=== PATIENT | female | born 1985 | race Caucasian/White ===

== ENCOUNTER 2019-01-12 04:39 | Inpatient (IN) ==
--- NOTE | 2019-01-11 15:24 | HP ---
Chief Complaint - Chief Complaint Date of Service: 01/11/19 Time of Service: 15:14 Chief Complaint: RLTCS History of Present Illness: 33 yo presents to L&D for repeat section on 01/12/19 at 39 weeks. This complicated by advanced maternal age, CF carrier, GDM - diet controlled, h/o preeclampsia, migraines, prior c/s, and recurrent SAB. 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 [facility]. NRHTs, Failure to descend remote from delivery History of repair of ACL Onset Date: 1999 R knee Status post hysteroscopic polypectomy Onset Date: 12/19/16 and septoplasty Family History: Family History (Updated 06/29/18 @ 13:26 by Vera Ortega RN) Mother Thyroid cancer Primary cancer of shoulder Breast cancer Anemia Leukopenia Migraines Cancer of back Father Hepatitis Sister Anemia Crohns disease Grandmother Heart disease Maternal Hypertension Rheumatoid arthritis Social History: Preferred Language Cameroonian Smoking Status Never smoker (Last Reviewed 01/06/19 @ 09:21 by Melonie Hoskins RN) No Social History Section defined Review Of Systems (GEN) - Review of Systems Generalized/Overall Review: Present: No Symptoms Reported EENTM: Present: No Symptoms Reported Respiratory: Present: No Symptoms Reported Cardiac: Present: No Symptoms Reported Abdominal: Present: No Symptoms Reported Genitourinary: Present: No Symptoms Reported Musculoskeletal: Present: No Symptoms Reported Neurological: Present: No Symptoms Reported Skin: Present: No Symptoms Reported Endocrine: Present: No Symptoms Reported Allergies/Adverse Reactions: Allergies Allergy/AdvReac Type Severity Reaction Status Date / Time sulfamethoxazole Allergy Swelling Verified 01/06/19 09:21 [From Bactrim] (Other) sumatriptan [From Imitrex] Allergy Hives Verified 01/06/19 09:21 trimethoprim [From Bactrim] Allergy Swelling Verified 01/06/19 09:21 (Other) Iodinated Contrast- Oral and AdvReac Unknown Verified 01/06/19 09:21 IV Dye Home Medications: HOME MEDICATIONS acetaminophen 300 mg-codeine 30 mg tablet 1 tab PO TID PRN tab 06/29/18 [Last Taken Unknown] acetaminophen 325 mg capsule 325 mg PO PRN PRN 06/29/18 [Last Taken Unknown] vitamin,calcium,opcbyodb-llye-ysvhv acid tablet 1 tab PO DAILY 06/29/18 [Last Taken Unknown] Bacillus coagulans 10 billion cell capsule,delayed release 1 cell PO DAILY cap 08/17/18 [Last Taken Unknown] aspirin 81 mg tablet,delayed release 81 mg PO DAILY 08/17/18 [Last Taken Unknown] pyridoxine (vitamin B6) 25 mg tablet 25 mg PO DAILY 09/14/18 [Last Taken Unknown] calcium carbonate-vitamin D3 600 mg-125 unit tablet 1 tab PO DAILY tab 10/14/18 [Last Taken Unknown] blood sugar diagnostic strips See Dose Instructions .ROUTE .MEDSUPPLY #100 ea 10/27/18 [Last Taken Unknown] blood-glucose meter kit See Dose Instructions .ROUTE .MEDSUPPLY #1 ea 10/27/18 [Last Taken Unknown] ketone blood test strips See Dose Instructions .ROUTE .MEDSUPPLY #50 ea 10/27/18 [Last Taken Unknown] lancets 28 gauge See Dose Instructions .ROUTE .MEDSUPPLY #100 ea 10/27/18 [Last Taken Unknown] docusate sodium 50 mg capsule 50 mg PO BID 12/07/18 [Last Taken Unknown] Exam - Exam Constitutional: Present: Alert, Oriented x3, Cooperative, No distress ENT Exam: Present: hearing grossly normal Breasts: Present: Exam deferred Respiratory: Present: lungs clear, no respiratory distress Cardiovascular/Chest: Present: regular rate, rhythm, no edema Abdomen: Present: soft, no rebound tenderness, other - gravid /Rectal: Present: Exam deferred Extremity: Present: no pedal edema, no calf tenderness Skin Exam: Present: normal color, warm/dry, no cyanosis Neurologic: Present: alert, normal mood/affect, oriented x 3 Appearance: Present: appropriate appearance, appropriate insight Eye contact: Present: cooperative, good eye contact, normal speech Thoughts: Present: normal thought pattern Assessment/Plan - Assessment/Plan (1) Previous section Assessment: Admit for repeat section on 01/12/19. Problem: Acute (2) Gestational diabetes Problem: Acute Qualifiers: Gestational diabetes mellitus control: diet-controlled Trimester: third trimester Qualified Code(s): O24.410 - Gestational diabetes mellitus in , diet controlled (3) Advanced maternal age affecting , antepartum Problem: Acute (4) History of pre-eclampsia Problem: Chronic
[2019-01-12] MEDS ORDERED: RINGER'S SOLUTION,LACTATED 1,000 ML IV PRN ×2 (04:40)
[2019-01-12] MEDS ORDERED: ceFAZolin SODIUM/DEXTROSE,ISO 2 GM/50 ML BAG IV ONE (04:40)
[2019-01-12] MEDS ORDERED: OXYTOCIN 20 UNITS in RINGER'S SOLUTION,LACTATED 1,000 ML IV ONE (04:40)
[2019-01-12 05:32] LABS: Cocaine Ur Negative (NEGATIVE); Urine Barbiturate Negative (NEGATIVE); Urine Benzodiazepines Negative (NEGATIVE); Urine Opiates Negative (NEGATIVE); Urine PCP Negative (NEGATIVE); Urine THC Negative (NEGATIVE)
--- NOTE | 2019-01-12 09:25 | OR ---
Operative Report - Dictated Report Narrative: Indication: 33 year old 031 at 39 weeks presents for repeat section status: Planned Pre Operative Diagnosis: 39 week intrauterine , prior section, advanced maternal age, gestational diabetes-diet controlled, septate uterus Post Operative Diagnosis: Same. Procedure: Repeat low transverse section. Abdominal scar revision - 16cm Surgeon: Lynn Roca DO V Belt Curer: OR Staff Anesthesia: Spinal, TAP block Estimated Blood Loss: 400 mL Urine Output: 150 mL clear urine Fluids Replacement: 1300 mL Drains: Smith to gravity Surgical Complications: None Specimens: Placenta to pathology Findings: Female born at 0810 on 01/12/2021 with Apgars 9 and 9, weighing 3357 g in cephalic presentation. Severe rectus diathesis, Paper thin anterior lower uterine segment. Thick horizontal septum incorporating half of the uterine cavity, normal-appearing tubes and ovaries. Technique: The patient was taken to the operating room and placed in dorsal supine position with a left lateral tilt. After adequate spinal anesthesia, smith catheter inserted, SCDs placed, and 2 g of Ancef given preoperatively, the previous scar was excised in an elliptical fashion and the abdominal cavity was entered using sharp and blunt dissection. Two rolled laps were placed in the pericolic gutters on either side of the uterus. The entire lower uterine segment was noted to be paper thin. A transverse incision was made in the lower uterine segment and extended laterally and upwardly with digital traction. Clear fluid was noted upon amniotomy. The was delivered easily. The cord was clamped and cut and infant was handed off to awaiting washing and screening plant supervisor. The placenta was allowed to deliver spontaneously. The uterus was cleared of clot and debris. A thick (approximately 2 cm) vaginal septum was noted exte nding from the right side to mid uterus. Prior to closing the uterine incision, communication with the cervix was confirmed with the nurse placing a sterile finger into the cervix and reaching through the hysterotomy into the cervix to palpate her finger. Uterine incision was closed with 0 Vicryl using a running stitch. A second imbricating layer was placed. Excellent hemostasis was noted. By using a generous portion of uterus on either side of the incision I was able to bulk up the thickness of the uterine wall around the hysterotomy. The rolled laps were removed from the abdominal cavitiy. The peritoneum was closed with a running 3-0 Monocryl. The same suture was used to approximate the rectus and pyramidalis muscles. The fascia was closed with a running 0 Vicryl. The subcutaneous layer was closed with a running 3-0 Monocryl. The same suture was used to approximate the subdermal layer. The skin was closed with a running 4-0 Monocryl and Dermabond. Sponge, lap, needle, and instrument count were correct x 2. Disposition: To post anesthesia care unit in good condition
[2019-01-12] MEDS ORDERED: ONDANSETRON HCL/PF 2 MG/ML VIAL IV PRN (09:27)
[2019-01-12] MEDS ORDERED: oxyCODONE HCL/ACETAMINOPHEN 1 TAB TABLET PO PRN (09:27)
[2019-01-12] MEDS ORDERED: BISACODYL 10 MG SUPP.RECT RC PRN (09:27)
[2019-01-12] MEDS ORDERED: SIMETHICONE 80 MG TAB.CHEW PO PRN (09:27)
[2019-01-12] MEDS: oxyCODONE HCL/ACETAMINOPHEN 1 TAB TABLET PO PRN ×4 (10:07→20:22)
[2019-01-12] MEDS: IBUPROFEN 800 MG TABLET PO PRN ×2 (10:07→17:06)
--- NOTE | 2019-01-12 10:34 | ANES ---
Anesthesia Pre Procedure Eval Vitals/Labs: Last Vital Signs Temp 37.0 C 01/12/19 09:30 Pulse 85 01/12/19 09:30 Resp 20 01/12/19 09:30 BP 140/61 H 01/12/19 09:30 Pulse Ox 100 01/12/19 09:30 HOME MEDICATIONS acetaminophen 300 mg-codeine 30 mg tablet 1 tab PO TID PRN tab 06/29/18 [Last Taken Unknown] acetaminophen 325 mg capsule 325 mg PO PRN PRN 06/29/18 [Last Taken 01/10/19] vitamin,calcium,rofpwsje-gogx-aucwv acid tablet 1 tab PO DAILY 06/29/18 [Last Taken 01/11/19 08:00] Bacillus coagulans 10 billion cell capsule,delayed release 1 cell PO DAILY cap 08/17/18 [Last Taken 01/11/19] aspirin 81 mg tablet,delayed release 81 mg PO DAILY 08/17/18 [Last Taken 01/11/19 08:00] pyridoxine (vitamin B6) 25 mg tablet 25 mg PO DAILY 09/14/18 [Last Taken 01/11/19 08:00] calcium carbonate-vitamin D3 600 mg-125 unit tablet 1 tab PO DAILY tab 10/14/18 [Last Taken 01/11/19 08:00] blood sugar diagnostic strips See Dose Instructions .ROUTE .MEDSUPPLY #100 ea 10/27/18 [Last Taken 01/11/19] blood-glucose meter kit See Dose Instructions .ROUTE .MEDSUPPLY #1 ea 10/27/18 [Last Taken 01/11/19] ketone blood test strips See Dose Instructions .ROUTE .MEDSUPPLY #50 ea 10/27/18 [Last Taken 01/11/19] lancets 28 gauge See Dose Instructions .ROUTE .MEDSUPPLY #100 ea 10/27/18 [Last Taken 01/11/19 08:00] docusate sodium 50 mg capsule 50 mg PO BID 12/07/18 [Last Taken 01/11/19 20:00] Allergies/Adverse Reactions: Allergies Allergy/AdvReac Type Severity Reaction Status Date / Time sulfamethoxazole Allergy Swelling Verified 01/06/19 09:21 [From Bactrim] (Other) sumatriptan [From Imitrex] Allergy Hives Verified 01/06/19 09:21 trimethoprim [From Bactrim] Allergy Swelling Verified 01/06/19 09:21 (Other) Iodinated Contrast- Oral and AdvReac Unknown Verified 01/06/19 09:21 IV Dye - Planned Procedure Planned Procedure: REPEAT C SECTION Medication List Reviewed:: Yes Allergies Verified: Yes Medical History (Updated 01/11/19 @ 16:47 by Arie Roca DO) Advanced maternal age affecting , antepartum (Acute) History of pre-eclampsia (Chronic) History of gestational diabetes (Chronic) Gestational diabetes Onset Date: 10/01/172017 & 2018 Pre-eclampsia Onset Date: ~11/2017 & 12/10/18 Bicornuate uterus Onset Date: 02/22/16 Cystic fibrosis carrier Onset Date: 07/21/17 HPV (human papilloma virus) infection Onset Date: Unknown Migraines Onset Date: Unknown Septate uterus Onset Date: 11/24/16 Abnormal Pap smear of cervix Onset Date: 2012 +HPV, tx through [facility] Incomplete Onset Date: 08/07/16 Spontaneous Onset Date: 08/04/16 Surgical History (Updated 01/11/19 @ 16:47 by Arie Roca DO) H/O section Onset Date: 12/12/17 Primary. [facility]. NRHTs, Failure to descend remote from delivery History of repair of ACL Onset Date: 1999 R knee Status post hysteroscopic polypectomy Onset Date: 12/19/16 and septoplasty Family History (Updated 06/29/18 @ 13:26 by Vera Ortega RN) Mother Thyroid cancer Primary cancer of shoulder Breast cancer Anemia Leukopenia Migraines Cancer of back Father Hepatitis Sister Anemia Crohns disease Grandmother Heart disease Maternal Hypertension Rheumatoid arthritis - Airway/Neck/Teeth Within Normal Limits:: Yes Teeth Condition: intact Mallampatti Score: 2 Thyromental (T-M) distance: > 6 cm Mandibulo Hyoid distance: > 3 cm - Respiratory Respiratory Physical: lungs clear Smoking Status: Never smoker Discussed smoking cessation including day of surgery: No Sleep Apnea currently treated: No Sleep Apnea by current assessment: No Discussed Risks/Treatment of JOSE DE JESUS: No - Cardiovascular Tolerate Activity: Good Heart Sounds: S1 & S2, Regular - Anesthesia Assessment and Plan ASA Class: PS, II Anesthesia Type Plan: Block - Bilater ultrasound guided TAP blocks for postop analgesia, Spinal
--- NOTE | 2019-01-12 10:35 | ANES ---
Post Anesthesia Assessment - Vital Signs Vitals: Last Vital Signs Temp 37.0 C 01/12/19 09:30 Pulse 85 01/12/19 09:30 Resp 20 01/12/19 09:30 BP 140/61 H 01/12/19 09:30 Pulse Ox 100 01/12/19 09:30 Airway Patency: Normal - Mental Status Level Of Consciousness: Awake - Pain Level Pain Score: 4 - N/V Assessment Nausea/Vomiting Presence: None Dehydration:: No
--- NOTE | 2019-01-12 10:35 | ANES ---
Post Anesthesia Discharge - Transfer of Care Transfer of Care handoff given to nurse: Yes - Discharge from PACU Discharge from PACU when meets criteria: Yes - Discharge to ASU Discharge to ASU-no complications/pt stable: Yes
--- NOTE | 2019-01-12 10:40 | ANES ---
Anesthesia Procedure Note Procedure Note: ANESTHESIA PROCEDURE NOTE Date of Procedure: 01/12/2019. Time of procedure: 914. Performed by: Dennis Pringle CRNA Magnetic Grinder Operator: None. Preprocedure diagnosis: Repeat . Post procedure diagnosis: Same. Procedure: Bilateral ultrasound-guided transversus abdominis plane block for postop analgesia. Indications: The patient is a 33 -year-old female post section. Findings: See below. Details of the procedure: ChloraPrep was used on the patient's abdomen and the procedure was performed under sterile technique. The right abdominal fascial layer between the internal oblique muscle and the transversus abdominis muscles was identified under ultrasound guidance. A 21-gauge 4 inch block needle was inserted under ultrasound guidance to the target fascial plane. 15 mL's of 0.5% bupivacaine plus epinephrine 1:200,000 was injected after negative aspiration for blood. The needle was removed intact and the procedure was then repeated at the left side. No complications were noted. The images were retained in the hospital medical database . EBL: Minimal. Fluids: N/A. Specimen: N/A. Post procedure condition: The patient tolerated the procedure well. No complications were noted. Thank you for this consultation. Dennis Pringle CRNA
[2019-01-12] MEDS: DOCUSATE SODIUM 100 MG CAPSULE PO SCH (20:22)
[2019-01-13] MEDS: IBUPROFEN 800 MG TABLET PO PRN ×3 (01:56→20:20)
[2019-01-13] MEDS: oxyCODONE HCL/ACETAMINOPHEN 1 TAB TABLET PO PRN ×4 (01:57→17:18)
[2019-01-13] MEDS: DOCUSATE SODIUM 100 MG CAPSULE PO SCH ×3 (06:59→20:20)
[2019-01-13] MEDS: SENNOSIDES 8.6 MG TABLET PO PRN (17:18)
--- NOTE | 2019-01-13 18:35 | PN ---
Subjective - Date and Time Seen Date: 01/13/19 Time: 18:33 Objective - Vitals Vitals: Last Vital Signs Temp 36.9 C 01/13/19 12:10 Pulse 82 01/13/19 12:10 Resp 20 01/13/19 12:10 BP 141/88 H 01/13/19 12:10 Pulse Ox 99 01/13/19 12:10 Patient denies complaints. Specifically denies headache, visual changes, or epigastric pain Tolerating regular diet. Ambulating without difficulty. Pain well controlled. Lochia wnl. Abdomen - soft, appropriately tender Incision - clean, dry, intact Uterus - firm, at umbilicus -1 No calf tenderness Impression: Post op day #1 s/p repeat section. Gestational diabetes - resolved. gestational hypertension Plan: Continue routine post-operative/ care. Monitor blood pressures closely and observe for signs/symptoms of preeclampsia. Cauti Physician Documentation - Urinary Catheter Management Urethral (Rodriguez) Date of Insertion: 01/12/19 Time of Insertion: 07:50 Date of Removal: 01/12/19 Time of Removal: 20:10 Assessment/Plan - Problems/Diagnosis (1) Previous section Problem: Acute (2) Gestational diabetes Problem: Acute Qualifiers: Gestational diabetes mellitus control: diet-controlled Trimester: third trimester Qualified Code(s): O24.410 - Gestational diabetes mellitus in , diet controlled (3) Advanced maternal age affecting , antepartum Problem: Acute (4) History of pre-eclampsia Problem: Chronic
--- NOTE | 2019-01-13 19:08 | PN ---
Progess Note - Interim Date: 01/13/19 Time: 19:08 History for MU Definition: * The number of deliveries resulting in a live the patient experienced prior to current hospitalization * The previous delivery of live twins or any live multiple gestation is considered one live event. *If primagravida or nulliparous is documented select zero for the number of previous live births. Live Events: 1
[2019-01-14] MEDS: oxyCODONE HCL/ACETAMINOPHEN 1 TAB TABLET PO PRN ×5 (00:30→20:40)
[2019-01-14] MEDS: DOCUSATE SODIUM 100 MG CAPSULE PO SCH ×3 (06:55→20:07)
[2019-01-14] MEDS: IBUPROFEN 800 MG TABLET PO PRN ×2 (06:55→15:33)
--- NOTE | 2019-01-14 10:45 | PN ---
Subjective - Date and Time Seen Date: 01/14/19 Time: 10:44 Objective - Vitals Vitals: Last Vital Signs Temp 37.3 C 01/14/19 01:00 Pulse 75 01/14/19 01:00 Resp 18 01/14/19 01:00 BP 145/79 H 01/14/19 01:00 Pulse Ox 98 01/14/19 01:00 Patient denies complaints. Ambulating well. Tolerating regular diet. Pain well controlled. Lochia wnl. DTR-2/4 Abdomen - soft, appropriately tender Incision - clean, dry, intact Uterus - firm, at umbilicus -2 No calf tenderness Impression: Post op day #2 s/p repeat section. Gestational diabetes- resolved. gestational hypertension-stable Plan: Continue routine post-operative/ care. Pre-eclampsia precautions. Cauti Physician Documentation - Urinary Catheter Management Urethral (Rodriguez) Date of Insertion: 01/12/19 Time of Insertion: 07:50 Date of Removal: 01/12/19 Time of Removal: 20:10 Assessment/Plan - Problems/Diagnosis (1) Previous section Problem: Acute (2) Gestational diabetes Problem: Acute Qualifiers: Gestational diabetes mellitus control: diet-controlled Trimester: third trimester Qualified Code(s): O24.410 - Gestational diabetes mellitus in , diet controlled (3) Advanced maternal age affecting , antepartum Problem: Acute (4) History of pre-eclampsia Problem: Chronic
[2019-01-14] MEDS ORDERED: LABETALOL HCL 5 MG/ML VIAL IV ONE ×3 (16:43→18:45)
[2019-01-14 17:07] LABS: Hematocrit 29.4 % (37.0-47.0); Hemoglobin 9.5 gm/dL (12.5-16.0); Mean Cell Volume 95.1 fl (78-100); Mean Corpuscular Hemoglobin 30.7 pg (27-31); Mean Corpuscular Hgb Conc 32.3 g/dl (32-36); Mean Platelet Volume 10.1 fl (8-12.5); Neutrophil # 7.5 K/mm3 (1.3-6.0); Neutrophil % 60.5 % (42-75.0); Platelet Count 304 K/mm3 (150-450); Red Blood Count 3.09 M/mm3 (4.2-5.4); Red Cell Distribution Width 14.3 % (11.5-14.0); White Blood Count 12.5 K/mm3 (4.0-10.5)
[2019-01-14 17:27] LABS: Albumin * 2.1 gm/dl (3.4-5.0); BUN/Creatinine Ratio 13.6 (9.0-21.6); Bilirubin, Total 0.2 mg/dL (0.0-1.1); Ca. Corrected For Albumin 10.2 mg/dL (8.4-10.2); Carbon Dioxide 26.4 mmol/L (24-32.6); Potassium 3.4 mmol/L (3.4-4.6)
[2019-01-14] MEDS ORDERED: LABETALOL HCL 100 MG TABLET PO ONE (18:45)
[2019-01-14] MEDS: SENNOSIDES 8.6 MG TABLET PO PRN (20:07)
[2019-01-15] MEDS: IBUPROFEN 800 MG TABLET PO PRN ×2 (01:05→08:30)
[2019-01-15] MEDS ORDERED: LABETALOL HCL 100 MG TABLET PO SCH (02:00)
[2019-01-15] MEDS: LABETALOL HCL 100 MG TABLET PO SCH ×3 (02:07→10:51)
[2019-01-15] MEDS: oxyCODONE HCL/ACETAMINOPHEN 1 TAB TABLET PO PRN ×3 (02:21→11:51)
[2019-01-15] MEDS: DOCUSATE SODIUM 100 MG CAPSULE PO SCH (08:30)
[2019-01-15] MEDS ORDERED: LABETALOL HCL 100 MG TABLET PO ONE (10:49)
--- NOTE | 2019-01-15 11:26 | PN ---
Subjective - Date and Time Seen Date: 01/15/19 Time: 11:22 Objective - Vitals Vitals: Last Vital Signs Temp 36.9 C 01/15/19 07:52 Pulse 81 01/15/19 10:51 Resp 16 01/15/19 07:52 BP 160/93 H 01/15/19 10:51 Pulse Ox 99 01/15/19 07:52 Patient denies complaints. Specifically denies headache, visual changes, or epigastric pain. Ambulating without difficulty. Tolerating regular diet. Pain well controlled. Lochia wnl. Abdomen - soft, appropriately tender Incision - [clean, dry, intact] Uterus - firm, at umbilicus -[3] DTR-3/ No calf tenderness Impression: Post op day #3 s/p repeat section with abdominal scar revision. Gestational diabetes-resolved. gestational hypertension and severe range - not responding well to labetalol 100 mg 3 times a day. Plan: Labetalol increased to 200 mg twice a day. If blood pressures remain stable we'll discharge to home later today with preeclampsia precautions. Blood pressure check at home in 2 days and 1 week in office. - Abnormal Lab Findings Abnormal Lab Findings: Abnormal Lab Results 01/14/19 01/14/19 Range/Units 17:02 17:02 WBC 12.5 H (4.0-10.5) K/mm3 RBC 3.09 L (4.2-5.4) M/mm3 Hgb 9.5 L (12.5-16.0) gm/dL Hct 29.4 L (37.0-47.0) % RDW 14.3 H (11.5-14.0) % Immature Gran % (Auto) 1.40 H (0.001-0.429) % Immature Gran # (Auto) 0.17 H (0.000-0.0310) K/mm3 Neutrophils # 7.5 H (1.3-6.0) K/mm3 ALT 15 L (19-67) U/L Total Protein 6.0 L (6.2-8.2) gm/dL Albumin 2.1 L (3.4-5.0) gm/dl Cauti Physician Documentation - Urinary Catheter Management Urethral (Rodriguez) Date of Insertion: 01/12/19 Time of Insertion: 07:50 Date of Removal: 01/12/19 Time of Removal: 20:10 Assessment/Plan - Problems/Diagnosis (1) Previous section Problem: Acute (2) Gestational diabetes Problem: Acute Qualifiers: Gestational diabetes mellitus control: diet-controlled Trimester: third trimester Qualified Code(s): O24.410 - [place]ational diabetes mellitus in [place], diet controlled (3) Advanced maternal age affecting , antepartum Problem: Acute (4) History of pre-eclampsia Problem: Chronic
[2019-01-15 11:54] VITALS: BP 153/97
== END 2019-01-15 13:13 | disposition home or self-care (01) | DRG 788 ==
LOC: OB 04:39 → MS 01-13 16:20
PROVIDERS: ADMIT Obstetrics & Gynecology; ATTEND Obstetrics & Gynecology
CPT/HCPCS: 36415; 59025; 80053; 80307; 85025; 88307

== ENCOUNTER 2019-01-18 16:27 | Inpatient (IN) ==
[2019-01-18] MEDS ORDERED: CALCIUM GLUCONATE 4.65 MEQ/10 ML VIAL IV PRN (16:37)
[2019-01-18] MEDS ORDERED: MAGNESIUM SULFATE IN WATER 50 ML, MAGNESIUM SULFATE IN WATER 50 ML IV ONE ×2 (16:37)
[2019-01-18 17:00] LABS: Hematocrit 34.4 % (37.0-47.0); Hemoglobin 11.1 gm/dL (12.5-16.0); Mean Cell Volume 94.8 fl (78-100); Mean Corpuscular Hemoglobin 30.6 pg (27-31); Mean Corpuscular Hgb Conc 32.3 g/dl (32-36); Mean Platelet Volume 9.1 fl (8-12.5); Neutrophil # 6.1 K/mm3 (1.3-6.0); Neutrophil % 57.9 % (42-75.0); Platelet Count 445 K/mm3 (150-450); Red Blood Count 3.63 M/mm3 (4.2-5.4); Red Cell Distribution Width 13.6 % (11.5-14.0); White Blood Count 10.5 K/mm3 (4.0-10.5)
[2019-01-18 17:13] LABS: Albumin * 2.7 gm/dl (3.4-5.0); Anion Gap 10.1 mmol/L (6.8-13.8); BUN/Creatinine Ratio 15.1 (9.0-21.6); Bilirubin, Total 0.3 mg/dL (0.0-1.1); Ca. Corrected For Albumin 11.6 mg/dL (8.4-10.2); Calcium * 10.9 mg/dL (7.9-10.9); Carbon Dioxide 30.3 mmol/L (24-32.6); Potassium 3.4 mmol/L (3.4-4.6); Total Protein 6.8 gm/dL (6.2-8.2)
[2019-01-18] MEDS ORDERED: LABETALOL HCL 5 MG/ML VIAL IV ONE (17:27)
[2019-01-18] MEDS: ENOXAPARIN SODIUM 40 MG/0.4 ML SYRG SC SCH (17:40)
[2019-01-18] MEDS: MAGNESIUM SULFATE IN WATER 1,000 ML IV SCH (17:52)
[2019-01-18 18:20] LABS: Random Urine Total Protein Less than 6.0 mg/dL (0-12)
[2019-01-18] MEDS ORDERED: METOCLOPRAMIDE HCL 5 MG/ML VIAL IV PRN (18:29)
[2019-01-18] MEDS ORDERED: diphenhydrAMINE HCL 50 MG/ML VIAL IV ONE (18:29)
[2019-01-18] MEDS: LABETALOL HCL 100 MG TABLET PO SCH (21:09)
[2019-01-18] MEDS ORDERED: IBUPROFEN 800 MG TABLET PO PRN (23:23)
[2019-01-19] MEDS: ACETAMINOPHEN 325 MG TABLET PO PRN ×4 (00:05→20:23)
[2019-01-19] MEDS: LABETALOL HCL 100 MG TABLET PO SCH ×2 (09:01→21:07)
[2019-01-19] MEDS: MAGNESIUM SULFATE IN WATER 1,000 ML IV SCH (12:48)
--- NOTE | 2019-01-19 14:16 | PN ---
Subjective - Date and Time Seen Date: 01/19/19 Time: 14:02 Subjective Narrative: Patient feeling very "wiped out" from magnesium. Mild GUPTA a few times since admission, resolves with tylenol. Denies N,V, epigastric pain. Objective - Review of Systems Generalized/Overall Review: Reports: Malaise, Fatigue, Weight loss. Denies: Chills, Fever, Diaphoresis EENTM: Reports: Blurred Vision Respiratory: Reports: No Symptoms Reported Cardiac: Reports: No Symptoms Reported Abdominal: Reports: No Symptoms Reported Genitourinary Symptoms: Reports: No Symptoms Reported Musculoskeletal Complaints: Reports: No Symptoms Reported Neurological: Reports: Headache - mild Skin: Reports: No Symptoms Reported Endocrine: Reports: No Symptoms Reported - Vitals Vitals: Last Vital Signs Temp 36.5 C 01/19/19 11:03 Pulse 74 01/19/19 13:47 Resp 18 01/19/19 12:55 BP 119/75 01/19/19 12:55 Pulse Ox 99 01/19/19 12:55 I/Os [id number] before MN last night, [id number]/[id number] from admission to now wt 69.9 to 67.6 kg - Abnormal Lab Findings Abnormal Lab Findings: Abnormal Lab Results 01/18/19 01/18/19 01/18/19 Range/Units 16:55 16:55 17:15 RBC 3.63 L (4.2-5.4) M/mm3 Hgb 11.1 L (12.5-16.0) gm/dL Hct 34.4 L (37.0-47.0) % Immature Gran % (Auto) 1.00 H (0.001-0.429) % Immature Gran # (Auto) 0.10 H (0.000-0.0310) K/mm3 Eosinophils % 3.9 H (0.0-3.0) % Neutrophils # 6.1 H (1.3-6.0) K/mm3 Calcium Adj for Albumin 11.6 H (8.4-10.2) mg/dL Albumin 2.7 L (3.4-5.0) gm/dl Ur Random Creatinine 2.7 L (60-200) mg/dL U [place] Prot/Creat Ratio 2222 H (0-199) mg/gm - Exam Constitutional: Present: Alert, Oriented x3, Cooperative ENT Exam: Present: hearing grossly normal Breasts: Present: Exam deferred Respiratory: Present: lungs clear, no respiratory distress Cardiovascular/Chest: Present: regular rate, rhythm, no edema Abdomen: Present: soft, nontender, nondistended, no rebound tenderness /Rectal: Present: Exam deferred Extremity: Present: no pedal edema, no calf tenderness Skin Exam: Present: normal color, warm/dry, no cyanosis Neurologic: Present: normal mood/affect, oriented x 3, other - drowsy, DTR 1/ b/l patella Appearance: Present: appropriate appearance, appropriate insight Eye contact: Present: cooperative, good eye contact Thoughts: Present: normal thought pattern Cauti Physician Documentation - Urinary Catheter Management Urethral (Rodriguez) Urethral Indwelling: Yes Reason for Continuing Indwelling Catheter: Other - acurrate hourly urine output, patient restricted to bedrest Date of Insertion: 01/18/19 Time of Insertion: 17:50 Assessment/Plan Plan Narrative: Patient diuresing well, blood pressures within normal range on labetalol 300 mg twice a day and magnesium sulfate intravenously. Over 2 kg gram weight loss. Plan to stop magnesium sulfate at 5 PM, increase activity. If patient's blood pressures remain stable, plan on discharge tonight. - Problems/Diagnosis (1) Pre-eclampsia, severe, condition Problem: Acute (2) Previous section Problem: Acute
--- NOTE | 2019-01-19 14:21 | HP ---
Chief Complaint - Chief Complaint Date of Service: 01/18/19 Time of Service: 19:30 Chief Complaint: Headache, severely elevated blood pressures History of Present Illness: Patient admitted to labor and delivery from office for preeclampsia with severe features. Blood pressures improving after IV labetalol and increased oral labetalol. Headache resolved with IV Benadryl/Reglan protocol. Tolerating IV magnesium sulfate at present. Physical exam unchanged from admission from office. We'll continue with plan as outlined in history and physical done at office for this admission which is to receive IV magnesium sulfate for at least 24 hours for seizure prophylaxis, antihypertensive medications to keep blood pressure under severe range, and to allow preeclampsia to resolve. 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 [facility]. NRHTs, Failure to descend remote from delivery. 01/12/19- Rpt . 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 Smoking Status Former smoker Have you smoked in the past 12 No months Do you dip or chew tobacco No (Last Updated 01/18/19 @ 16:56 by Arie Roca DO) No Social History Section defined Allergies/Adverse Reactions: Allergies Allergy/AdvReac Type Severity Reaction Status Date / Time sulfamethoxazole Allergy Swelling Verified 01/17/19 13:17 [From Bactrim] (Other) sumatriptan [From Imitrex] Allergy Hives Verified 01/17/19 13:17 trimethoprim [From Bactrim] Allergy Swelling Verified 01/17/19 13:17 (Other) Iodinated Contrast- Oral and AdvReac Unknown Verified 01/17/19 13:17 IV Dye Home Medications: HOME MEDICATIONS vitamin,calcium,cnmspney-qvrz-jzgjs acid tablet 1 tab PO DAILY 06/29/18 [Last Taken 01/18/19] Bacillus coagulans 10 billion cell capsule,delayed release 1 cell PO DAILY cap 08/17/18 [Last Taken 01/18/19] docusate sodium 50 mg capsule 50 mg PO BID 12/07/18 [Last Taken 01/11/19 20:00] oxyCODONE HCL/ACETAMINOPHEN [Percocet 5 MG/325 MG] 1 tab PO Q4H PRN #10 tab 01/14/19 [Last Taken 01/18/19] Labetalol HCl [Trandate] 200 mg PO BID #60 tab 01/15/19 [Last Taken 01/18/19] Ferrous Sulfate [Iron] 325 mg PO BID 01/18/19 [Last Taken 01/18/19] Exam - Exam Vital Signs: Vital Signs - Last Taken Temp 36.3 C 01/19/19 14:00 Pulse 66 01/19/19 14:00 Resp 18 01/19/19 14:00 BP 124/76 01/19/19 14:00 Pulse Ox 95 01/19/19 14:00 Diagnostic Studies: Abnormal Lab Results 01/18/19 01/18/19 01/18/19 Range/Units 16:55 16:55 17:15 RBC 3.63 L (4.2-5.4) M/mm3 Hgb 11.1 L (12.5-16.0) gm/dL Hct 34.4 L (37.0-47.0) % Immature Gran % (Auto) 1.00 H (0.001-0.429) % Immature Gran # (Auto) 0.10 H (0.000-0.0310) K/mm3 Eosinophils % 3.9 H (0.0-3.0) % Neutrophils # 6.1 H (1.3-6.0) K/mm3 Calcium Adj for Albumin 11.6 H (8.4-10.2) mg/dL Albumin 2.7 L (3.4-5.0) gm/dl Ur Random Creatinine 2.7 L (60-200) mg/dL U [place] Prot/Creat Ratio 2222 H (0-199) mg/gm Laboratory Results WBC 10.5 K/mm3 (4.0-10.5) 01/18/19 16:55 RBC 3.63 M/mm3 (4.2-5.4) L 01/18/19 16:55 Hgb 11.1 gm/dL (12.5-16.0) L 01/18/19 16:55 Hct 34.4 % (37.0-47.0) L 01/18/19 16:55 MCV 94.8 fl (78-100) 01/18/19 16:55 MCH 30.6 pg (27-31) 01/18/19 16:55 MCHC 32.3 g/dl (32-36) 01/18/19 16:55 RDW 13.6 % (11.5-14.0) 01/18/19 16:55 Plt Count 445 K/mm3 (150-450) 01/18/19 16:55 MPV 9.1 fl (8-12.5) 01/18/19 16:55 Immature Gran % (Auto) 1.00 % (0.001-0.429) H 01/18/19 16:55 Immature Gran # (Auto) 0.10 K/mm3 (0.000-0.0310) H 01/18/19 16:55 57.9 % (42-75.0) 01/18/19 16:55 28.5 % (20-51) 01/18/19 16:55 7.9 % (0.0-9) 01/18/19 16:55 3.9 % (0.0-3.0) H 01/18/19 16:55 0.8 % (0.0-1.0) 01/18/19 16:55 Nucleated RBC % 0.0 k/mm3 (0-1) 01/18/19 16:55 6.1 K/mm3 (1.3-6.0) H 01/18/19 16:55 3.00 k/mm3 (1.5-3.5) 01/18/19 16:55 0.8 k/mm3 (0.0-1.0) 01/18/19 16:55 0.4 k/mm3 (0.0-0.7) 01/18/19 16:55 Absolute Basophils 0.1 k/mm3 (0.0-0.1) 01/18/19 16:55 Sodium 139 mmol/L (132-142) 01/18/19 16:55 139 mmol/L (130-142) 01/18/19 16:55 Potassium 3.4 mmol/L (3.4-4.6) 01/18/19 16:55 Chloride 102 mmol/L (97-106) 01/18/19 16:55 Carbon Dioxide 30.3 mmol/L (24-32.6) 01/18/19 16:55 10.1 mmol/L (6.8-13.8) 01/18/19 16:55 BUN 13 mg/dL (3-23) 01/18/19 16:55 0.86 mg/dL (0.4-1.4) 01/18/19 16:55 Est GFR (Non-Af Amer) 80 mL/min (60-130) 01/18/19 16:55 15.1 (9.0-21.6) 01/18/19 16:55 73 mg/dL (70-110) 01/18/19 16:55 Calcium 10.9 mg/dL (7.9-10.9) 01/18/19 16:55 Calcium Adj for Albumin 11.6 mg/dL (8.4-10.2) H 01/18/19 16:55 0.3 mg/dL (0.0-1.1) 01/18/19 16:55 AST 19 U/L (0-48) 01/18/19 16:55 ALT 21 U/L (19-67) 01/18/19 16:55 98 U/L (50-170) 01/18/19 16:55 6.8 gm/dL (6.2-8.2) 01/18/19 16:55 2.7 gm/dl (3.4-5.0) L 01/18/19 16:55 Ur Random Creatinine 2.7 mg/dL (60-200) L 01/18/19 17:15 U Random Total Protein Less than 6.0 mg/dL (0-12) 01/18/19 17:15 U [place] Prot/Creat Ratio 2222 mg/gm (0-199) H 01/18/19 17:15 Assessment/Plan - Procedures Results: Physical exam unchanged from admission from office. We'll continue with plan as outlined in history and physical done at office for this admission which is to receive IV magnesium sulfate for at least 24 hours for seizure prophylaxis, antihypertensive medications to keep blood pressure under severe range, and to allow preeclampsia to resolve. - Assessment/Plan (1) Pre-eclampsia, severe, condition Problem: Acute (2) Previous section Problem: Acute
[2019-01-19] MEDS: ENOXAPARIN SODIUM 40 MG/0.4 ML SYRG SC SCH (16:57)
[2019-01-19 22:32] VITALS: BP 123/74
--- NOTE | 2019-01-20 16:45 | DS ---
(1) Pre-eclampsia, severe, condition Problem: Acute (2) Previous section Problem: Chronic (3) Migraine headache Problem: Resolved Qualifiers: Migraine type: without aura Status migrainosus presence: with status migrainosus Intractability: intractable Qualified Code(s): G43.011 - Migraine without aura, intractable, with status migrainosus Description of Stay: 33 yo , one week s/p RLTCS on labetalol 200mg BID since delivery due to gestational hypertension presented to office for routine BP check complaining of "feeling funny" and a headache. [facility] GU[facility]A and blood pressures and further evaluation. Her renal and liver functions were normal but protein/cr ratio was elevated to 2222. Her blood pressures responded to Labetalol 20mg IV and 300mg BID PO. She was placed on magnesium sulfate for seizure prophylaxis for 24 hours during which time she diuresed well and lost over 2 kg of fluid. Her headache resolved with IV Benadryl/Reglan. Mild recurrent headaches , thought to be due to the magnesium resolved with Tylenol. She was discharged to home late evening of hospital day #2 on Labetolol 300mg BID with preeclampsia precautions. She was instructed to take her BP at home daily and follow up in office for BP check in 5 days. Procedures Performed: see notes below - IV hypertensives, IV seizure prophylaxis, IV meds for migraine, telemetry, intensive monitoring of BP and urine output Results and Findings: Lab Pending Results 01/18/19 16:55: WBC 10.5, RBC 3.63 L, Hgb 11.1 L, Hct 34.4 L, MCV 94.8, MCH 30.6, MCHC 32.3, RDW 13.6, Plt Count 445, MPV 9.1, Immature Gran % (Auto) 1.00 H, Immature Gran # (Auto) 0.10 H, Neutrophils % 57.9, Lymphocytes % 28.5, Monocytes % 7.9, Eosinophils % 3.9 H, Basophils % 0.8, Nucleated RBC % 0.0, Neutrophils # 6.1 H, Lymphocytes # 3.00, Monocytes # 0.8, Eosinophils # 0.4, Absolute Basophils 0.1 01/18/19 16:55: Sodium 139, Plasma Sodium 139, Potassium 3.4, Chloride 102, Carbon Dioxide 30.3, Anion Gap 10.1, BUN 13, Creatinine 0.86, Est GFR (Non-Af Amer) 80, BUN/Creatinine Ratio 15.1, Random Glucose 73, Calcium 10.9, Calcium Adj for Albumin 11.6 H, Total Bilirubin 0.3, AST 19, ALT 21, Alkaline Phosphatase 98, Total Protein 6.8, Albumin 2.7 L 01/18/19 17:15: Ur Random Creatinine 2.7 L, U Random Total Protein Less than 6.0, U [place] Prot/Creat Ratio 2222 H Discharge Location: Home Disposition: Home self-care Condition: Good Discharge Activity: Other - No driving. No heavy lifting or strenuous activity Discharge Diet: General/regular food Problem Oriented Discharge Instructions to Patient/Family: Preeclampsia and Eclampsia Additional Patient Instructions (free text): You will need to be seen on Thursday01/24/19 @ 9:45AM for a BP check with Dr Roca. Please call with headache not relieved by Tylenol and rest, epigastric pain, visual disturbances, or generalized not feeling well. [facility] [phone], [facility] [phone]. Prescriptions (Any new or edited meds): Labetalol HCl [Trandate] 300 mg PO BID #28 tab Complete Home Medications List: Complete Home Medication List: vitamin,calcium,cghyxgdd-hdms-qsrxo acid tablet 1 tab PO DAILY 06/29/18 Bacillus coagulans 10 billion cell capsule,delayed release 1 cell PO DAILY cap 08/17/18 docusate sodium 50 mg capsule 50 mg PO BID 12/07/18 oxyCODONE HCL/ACETAMINOPHEN [Percocet 5 MG/325 MG] 1 tab PO Q4H PRN #10 tab 01/14/19 Ferrous Sulfate [Iron] 325 mg PO BID 01/18/19 Labetalol HCl [Trandate] 300 mg PO BID #28 tab 01/19/19
== END 2019-01-19 22:45 | disposition home or self-care (01) | DRG 776 ==
LOC: OB 16:27
PROVIDERS: ADMIT Obstetrics & Gynecology; ATTEND Obstetrics & Gynecology
CPT/HCPCS: 36415; 80053; 82570; 84155; 84156; 85025